=== PATIENT | male | born 1990 | race Caucasian/White ===

== ENCOUNTER 2019-06-22 04:11 | Emergency (ER) | payer OTHER ==
[~2019-06-22] VITALS: Ht 177.8 cm; Wt 77.9 kg
[~2019-06-22 04:11] MED LIST: MULT-6 PO
[2019-06-22] MEDS ORDERED: KETOROLAC 30 MG/1 ML IVPush ONE (05:00)
[2019-06-22] MEDS ORDERED: SODIUM CHLORIDE FLUSH 10ML SYR IVF ONE (05:00)
[2019-06-22] MEDS ORDERED: ONDANSETRON 2MG/ML, 2ML IVPush ONE (05:00)
[2019-06-22 05:14] LABS: BASOPHILS # (AUTO) 0.01 x10^3/uL (0-0.1); BASOPHILS % (AUTO) 0 % (0-1); EOSINOPHILS # (AUTO) 0.18 x10^3/uL (0-0.4); EOSINOPHILS % (AUTO) 4 % (1-7); LYMPHOCYTES # (AUTO) 1.83 x10^3/uL (1-3.4); LYMPHOCYTES % (AUTO) 39 % (22-44); MD NO; MEAN CORPUSCULAR HEMOGLOBIN 32.4 pg (27.5-34.5); MEAN CORPUSCULAR HGB CONC 34.6 g/dL (33.2-36.2); MEAN CORPUSCULAR VOLUME 93.8 fL (81-97); MONOCYTES # (AUTO) 0.53 x10^3/uL (0.2-0.8); MONOCYTES % (AUTO) 11 % (2-9); NEUTROPHILS # (AUTO) 2.16 x10^3/uL (1.8-6.8); NEUTROPHILS % (AUTO) 46 % (42-75); PLATELET COUNT 222 x10^3/uL (130-400); RED BLOOD COUNT 4.78 x10^6/uL (4.38-5.82); RED CELL DISTRIBUTION WIDTH 12.1 % (9.4-14.8)
[2019-06-22] MEDS ORDERED: ONDANSETRON 2MG/ML, 2ML ONE (05:16)
[2019-06-22] MEDS ORDERED: HYDROmorphone 1 MG/ML, 1ML INJ ONE ×3 (05:16→07:32)
[2019-06-22] MEDS ORDERED: KETOROLAC 30 MG/1 ML ONE (05:16)
[2019-06-22 05:24] LABS: ALANINE AMINOTRANSFERASE 29 U/L (12-78); ALBUMIN 3.7 g/dL (3.4-5.0); ANION GAP 6 mmol/L (5-15); CALCIUM 8.2 mg/dL (8.5-10.1); CHLORIDE 110 mmol/L (98-107); CREATININE 0.99 mg/dL (0.7-1.3)
[2019-06-22] MEDS: HYDROmorphone 1 MG/ML, 1ML INJ IVPush PRN ×2 (05:24→06:01)
[2019-06-22 05:26] LABS: ALKALINE PHOSPHATASE 52 U/L (45-117); BILIRUBIN,TOTAL 0.5 mg/dL (0.2-1.0); TOTAL PROTEIN 6.9 g/dL (6.4-8.2)
[2019-06-22 07:07] VITALS: BP 123/87
[2019-06-22 07:10] LABS: MICROSCOPIC INDICATED
[2019-06-22 07:23] LABS: CULTURE INDICATED? NO
[2019-06-22] MEDS ORDERED: HYDROmorphone 1 MG/ML, 1ML INJ IV ONE (07:30)
== END 2019-06-22 08:29 | disposition home or self-care (01) ==
LOC: ED 06:29
DX: N20.1 Calculus of ureter (principal); M54.9 Dorsalgia, unspecified
CPT/HCPCS: 36415; 74176; 76870; 80053; 81001; 85025; 96374; 96375; 96376; 99285; J1170; J1885; J2405